=== PATIENT | female | born 1980 | race Caucasian/White ===

== ENCOUNTER 2016-12-09 08:09 | Emergency (ER) | payer OTHER ==
[~2016-12-09] VITALS: Ht 147.3 cm; Wt 53.2 kg
[2016-12-09 08:14] VITALS: BP 154/79; PULSE 57; TEMP 97.1
[2016-12-09] MEDS ORDERED: MICROGESTIN 1/21 TAB PO (08:18)
[2016-12-09] MEDS ORDERED: NORCO 325 MG-51 TAB PO (08:19)
[2016-12-09 10:01] LABS: BASO % 0.2 % (0.0-2.0); GRAN # 17.8 (1.4-6.5); GRAN % 88.7 % (42.2-75.2); HEMATOCRIT 38.7 % (37.0-47.0); HEMOGLOBIN 13.3 g/dl (12.5-16.0); LYMPH # 1.3 (1.2-3.4); LYMPH % 6.3 % (20.0-51.0); MEAN CELL VOLUME 96 fl (80.0-100.0); MEAN CORPUSCULAR HEMOGLOBIN 33 pg (27.0-31.0); MEAN CORPUSCULAR HGB CONC 34 g/dl (33.0-37.0); MEAN PLATELET VOLUME 9.5 fl (7.4-10.4); MONO # 0.9 (0.1-0.6); MONO % 4.3 % (1.7-9.3); PLATELET COUNT 227 K/mm3 (130-400); RED BLOOD COUNT 4.04 M/mm3 (4.10-5.30); REDCELL DISTRIBUTION WIDTH-CV 11.7 % (11.5-14.5)
[2016-12-09 10:03] LABS: WHITE BLOOD COUNT 20.1 K/mm3 (4.8-10.8)
[2016-12-09 10:12] LABS: ADJUSTED CALCIUM 8.9 mg/dL (8.4-10.2); ALBUMIN 3.6 gm/dL (3.5-5.0); BILIRUBIN,TOTAL 1.2 mg/dL (0.0-1.0); CALCIUM 8.6 mg/dL (8.4-10.2); CREATININE, serum 0.7 mg/dL (0.52-1.25); POTASSIUM 4.4 mmol/L (3.4-5.0); TOTAL PROTEIN 6.4 gm/dL (6.4-8.2)
[2016-12-09 11:16] LABS: PH 6 (5-8); SQUAMOUS EPITHELIAL 0-2 /hpf; URINE APPEARANCE Clear; URINE BACTERIA None Seen /hpf; URINE BILIRUBIN Negative (NEGATIVE); URINE BLOOD 3+ (NEGATIVE); URINE COLOR Yellow; URINE GLUCOSE Negative (NEGATIVE); URINE KETONE Negative (NEGATIVE); URINE RBC >50 /hpf; URINE UROBILINOGEN Negative (NEGATIVE)
[2016-12-09] MEDS ORDERED: PERCOCET 325 MG1 TA3 PO (11:34)
== END 2016-12-09 12:25 | disposition home or self-care (01) ==
LOC: COL.ER 08:09
PROVIDERS: Nurse Practitioner
DX: N20.1 Calculus of ureter (principal); F17.200 Nicotine dependence, unspecified, uncomplicated; Z87.442 Personal history of urinary calculi; Z98.890 Other specified postprocedural states
CPT/HCPCS: J0696; J2270; J2405; J7030